=== PATIENT | female | born 1990 | race Hispanic/Latino ===

== ENCOUNTER 2017-08-17 18:35 | Emergency (ER) | payer OTHER ==
[~2017-08-17 18:35] MED LIST: ACET1TAB12 PO
[2017-08-17] MEDS ORDERED: ONDANSETRON HCL 4 MG/2 ML VIAL ONE (19:34)
[2017-08-17] MEDS ORDERED: ACETAMINOPHEN EXTRA STRENGTH 500 MG TABLET ONE (19:34)
[2017-08-17 19:38] LABS: BASOPHILS % (AUTO) 0.7 % (0.0-5.0); BILIRUBIN,URINE Negative (NEGATIVE); COLOR,URINE Yellow (YELLOW); EOSINOPHILS % (AUTO) 1.1 % (0.0-8.0); GLUCOSE, URINE (UA) Negative (NEGATIVE); HEMATOCRIT 38.1 % (36-48); KETONES,URINE Negative (NEGATIVE); LEUKOCYTE ESTERASE ,URINE Negative (NEGATIVE); LYMPHOCYTES % (AUTO) 29.2 % (21.0-51.0); MEAN CORPUSCULAR HEMOGLOBIN 31.4 pg (27.0-33.0); MEAN CORPUSCULAR HGB CONC 34.9 g/dL (32.0-36.0); MONOCYTES % (AUTO) 4.1 % (3.0-13.0); NEUTROPHILS % (AUTO) 64.9 % (40.0-77.0); NITRATE,URINE Negative (NEGATIVE); OCCULT BLOOD,URINE Trace (NEGATIVE); PH,URINE 6.5 (5.0-8.0); PLATELET COUNT (AUTO) 266 K/uL (130-400); PROTEIN,URINE Negative (NEGATIVE); RED BLOOD CELL COUNT(AUTO) 4.23 MIL/uL (4.00-5.50); RED CELL DISTRIBUTION WIDTH 12.6 % (11.0-15.5); WHITE BLOOD COUNT (AUTO) 7.6 K/uL (4.8-10.8)
[2017-08-17 19:39] LABS: APPEARANCE,URINE SLIGHTLY CLOUDY (CLEAR)
[2017-08-17 19:48] LABS: CREATININE 0.7 mg/dL (0.5-1.5); POTASSIUM 3.7 mmol/L (3.5-5.1)
[2017-08-17 19:49] LABS: BACTERIA,URINE Few /HPF (None Seen); SQUAMOUS EPITHELIAL CELL,UR Few /HPF (0-2); WBC,URINE 0-1 /HPF (0-1)
[2017-08-17 19:50] LABS: MUCUS,URINE Few LPF (None Seen)
[2017-08-17 19:53] LABS: ALBUMIN 4.1 g/dL (3.5-5.0); BILIRUBIN,TOTAL 0.3 mg/dL (0.2-1.0); TOTAL PROTEIN, SERUM 7.5 g/dL (6.0-8.3)
[2017-08-17] MEDS ORDERED: KETOROLAC TROMETHAMINE 15MG/ML ONE (20:04)
== END 2017-08-17 20:23 | disposition home or self-care (01) ==
LOC: EDH 18:35
DX: R10.32 Left lower quadrant pain (principal); G43.909 Migraine, unspecified, not intractable, without status migrainosus; Z88.0 Allergy status to penicillin; Z72.0 Tobacco use
CPT/HCPCS: 36415; 80053; 81001; 83690; 84703; 85025; 96374; 96375; 99284; J1885; J2405

== ENCOUNTER 2018-08-07 09:08 | Emergency (ER) | payer OTHER ==
[2018-08-07 10:22] LABS: HCG,QUAL RESULT NEGATIVE (NEGATIVE)
[2018-08-07] MEDS ORDERED: DiphenhydrAMINE HCL 50 MG/ML VIAL ONE (10:27)
[2018-08-07 10:28] LABS: AMPHET/METH SCREEN,URINE NEGATIVE (NEGATIVE); BARBITURATE SCREEN, URINE NEGATIVE (NEGATIVE); BENZODIAZEPINES SCREEN,URINE NEGATIVE (NEGATIVE); CANNABINOID SCREEN,URINE NEGATIVE (NEGATIVE); COCAINE SCREEN,URINE POSITIVE (NEGATIVE); OPIATE SCREEN,URINE NEGATIVE (NEGATIVE); PHENCYCLIDINE SCREEN,URINE NEGATIVE (NEGATIVE)
[2018-08-07] MEDS ORDERED: KETOROLAC TROMETHAMINE 60 MG/2 ML VIAL ONE (10:28)
[2018-08-07] MEDS ORDERED: ONDANSETRON ODT 4 MG TAB ONE (10:28)
== END 2018-08-07 10:52 | disposition home or self-care (01) ==
LOC: EDH 09:08
DX: G43.909 Migraine, unspecified, not intractable, without status migrainosus (principal); R11.0 Nausea; Z88.0 Allergy status to penicillin; Z98.890 Other specified postprocedural states
CPT/HCPCS: 80305; 81025; 96372 ×2; 99284; J1200; J1885

== ENCOUNTER 2022-03-20 13:04 | Emergency (ER) | payer OTHER ==
[~2022-03-20] VITALS: Ht 154.9 cm; Wt 62.1 kg
[~2022-03-20 13:04] MED LIST changes: +ACET-2079 PO; +IBUP-2070 PO
[2022-03-20 13:32] LABS: BASOPHILS % (AUTO) 0.6 % (0.0-5.0); EOSINOPHILS % (AUTO) 1.6 % (0.0-8.0); HEMATOCRIT 38.8 % (36-48); LYMPHOCYTES % (AUTO) 26.9 % (21.0-51.0); MEAN CORPUSCULAR HEMOGLOBIN 29.5 pg (27.0-33.0); MEAN CORPUSCULAR VOLUME 86.6 fL (79-99); MONOCYTES % (AUTO) 6.2 % (3.0-13.0); NEUTROPHILS % (AUTO) 64.6 % (40.0-77.0); PLATELET COUNT (AUTO) 305 K/uL (130-400); RED BLOOD CELL COUNT(AUTO) 4.48 MIL/uL (4.00-5.50); RED CELL DISTRIBUTION WIDTH 12.2 % (11.0-15.5); WHITE BLOOD COUNT (AUTO) 6.8 K/uL (4.8-10.8)
[2022-03-20 13:37] LABS: CREATININE 0.6 mg/dL (0.5-1.5); POTASSIUM 3.6 mmol/L (3.5-5.1)
[2022-03-20 13:54] LABS: APPEARANCE,URINE TURBID (CLEAR); BILIRUBIN,URINE NEGATIVE (NEGATIVE); COLOR,URINE RED (YELLOW); GLUCOSE, URINE (UA) NEGATIVE (NEGATIVE); KETONES,URINE NEGATIVE (NEGATIVE); LEUKOCYTE ESTERASE ,URINE NEGATIVE Leu/uL (NEGATIVE); NITRATE,URINE NEGATIVE (NEGATIVE); OCCULT BLOOD,URINE LARGE (NEGATIVE); PH,URINE 6.5 (5.0-8.0); PROTEIN,URINE NEGATIVE (NEGATIVE); UROBILINOGEN,URINE 0.2 mg/dL (0.2-1.0)
[2022-03-20 13:55] LABS: ALBUMIN 3.7 g/dL (3.5-5.0); TOTAL PROTEIN, SERUM 7.6 g/dL (6.0-8.3)
[2022-03-20 14:13] LABS: RBC,URINE TNTC /HPF (0-1); SQUAMOUS EPITHELIAL CELL,UR 0-2 /HPF (0-2)
[2022-03-20 14:14] LABS: BACTERIA,URINE Rare /HPF (None Seen); WBC,URINE None Seen /HPF (0-1)
[2022-03-20 15:09] VITALS: BP 126/72
== END 2022-03-20 15:05 | disposition home or self-care (01) ==
LOC: EDH 13:04
DX: N94.6 Dysmenorrhea, unspecified (principal); Z88.0 Allergy status to penicillin; Z79.899 Other long term (current) drug therapy; Z98.890 Other specified postprocedural states
CPT/HCPCS: 36415; 80053; 81001; 84702; 85025

== ENCOUNTER 2022-03-27 08:22 | Emergency (ER) | payer OTHER ==
[~2022-03-27] VITALS: Ht 152.4 cm; Wt 61.7 kg
[2022-03-27] MEDS ORDERED: ONDANSETRON ODT 4MG TAB ONE (08:31)
[2022-03-27 08:57] LABS: BASOPHILS % (AUTO) 0.5 % (0.0-5.0); EOSINOPHILS % (AUTO) 0.7 % (0.0-8.0); HEMATOCRIT 36.8 % (36-48); LYMPHOCYTES % (AUTO) 23.4 % (21.0-51.0); MEAN CORPUSCULAR HEMOGLOBIN 29.4 pg (27.0-33.0); MEAN CORPUSCULAR VOLUME 86.6 fL (79-99); PLATELET COUNT (AUTO) 305 K/uL (130-400); RED BLOOD CELL COUNT(AUTO) 4.25 MIL/uL (4.00-5.50); RED CELL DISTRIBUTION WIDTH 12.2 % (11.0-15.5); WHITE BLOOD COUNT (AUTO) 8.2 K/uL (4.8-10.8)
[2022-03-27] MEDS ORDERED: 0.9%NACL 1000ML 1,000 ML IV ONE (09:00)
[2022-03-27] MEDS ORDERED: PANTOPRAZOLE 40 MG/VIAL IVP ONE (09:00)
[2022-03-27 09:06] LABS: APPEARANCE,URINE CLEAR (CLEAR); BILIRUBIN,URINE NEGATIVE (NEGATIVE); COLOR,URINE LIGHT-YELLOW (YELLOW); GLUCOSE, URINE (UA) NEGATIVE (NEGATIVE); KETONES,URINE NEGATIVE (NEGATIVE); LEUKOCYTE ESTERASE ,URINE NEGATIVE Leu/uL (NEGATIVE); NITRATE,URINE NEGATIVE (NEGATIVE); OCCULT BLOOD,URINE NEGATIVE (NEGATIVE); PROTEIN,URINE 10 mg/dL (NEGATIVE); UROBILINOGEN,URINE 0.2 mg/dL (0.2-1.0)
[2022-03-27 09:11] LABS: HCG,QUALITATIVE URINE NEGATIVE (NEGATIVE)
[2022-03-27 09:19] LABS: AMPHET/METH SCREEN,URINE NEGATIVE (NEGATIVE); BARBITURATE SCREEN, URINE NEGATIVE (NEGATIVE); BENZODIAZEPINES SCREEN,URINE NEGATIVE (NEGATIVE); CANNABINOID SCREEN,URINE NEGATIVE (NEGATIVE); COCAINE SCREEN,URINE NEGATIVE (NEGATIVE); OPIATE SCREEN,URINE NEGATIVE (NEGATIVE); PHENCYCLIDINE SCREEN,URINE NEGATIVE (NEGATIVE)
[2022-03-27 09:20] LABS: ALBUMIN 3.7 g/dL (3.5-5.0); CREATININE 0.6 mg/dL (0.5-1.5); POTASSIUM 3.7 mmol/L (3.5-5.1); TOTAL PROTEIN, SERUM 7.5 g/dL (6.0-8.3)
[2022-03-27] MEDS ORDERED: KETOROLAC 30MG VIAL (30MG/ML) IVP ONE (09:30)
[2022-03-27 09:40] LABS: BACTERIA,URINE RARE /HPF (None Seen); MUCUS,URINE RARE LPF (None Seen); RBC,URINE 0-1 /HPF (0-1); SQUAMOUS EPITHELIAL CELL,UR MOD /HPF (0-2)
[2022-03-27] MEDS ORDERED: ONDANSETRON 4MG INJ ONE (11:38)
[2022-03-27] MEDS ORDERED: ONDANSETRON 4MG INJ IVP SCH (12:00)
[2022-03-27] MEDS ORDERED: NAPR375T6 PO (13:30)
[2022-03-27] MEDS ORDERED: ONDA4TAB10 PO (13:30)
[2022-03-27] MEDS ORDERED: FAMO-136 PO (13:30)
[2022-03-27 13:50] VITALS: BP 138/82
== END 2022-03-27 13:50 | disposition home or self-care (01) ==
LOC: EDH 08:22
DX: N20.0 Calculus of kidney (principal); R10.32 Left lower quadrant pain; Z88.0 Allergy status to penicillin; Z20.822 Contact with and (suspected) exposure to COVID-19; Z79.899 Other long term (current) drug therapy; Z98.890 Other specified postprocedural states
CPT/HCPCS: 99285; 74176; 96374; 76856; 96375; 87635; 80053; 80305; 83690; 85025; 81025; 36415; 81001; C9803; J7030; J2405; J1885; C9113

== ENCOUNTER 2023-11-15 16:11 | Emergency (ER) | payer BC, OTHER ==
[~2023-11-15] VITALS: Ht 154.9 cm; Wt 66.2 kg
[~2023-11-15 16:11] MED LIST changes: +FAMO-136 PO; +NAPR375T6 PO; +ONDA-243 PO
[2023-11-15 16:22] VITALS: BP 145/85; PULSE 95; RESP 19; TEMP 98.3; O2SAT 99
[2023-11-15] MEDS: NEOMY SULF/BACITRA/POLYMYXIN B 1 EACH PACKET TP ONE (16:32)
[2023-11-15] MEDS: cePHALexin 500 MG CAPSULE PO ONE (16:32)
[2023-11-15] MEDS: teTANUS/diphthERIA TOXOID [ADULT] 0.5 ML VIAL IM ONE (16:34)
[2023-11-15] MEDS ORDERED: CEPH500B PO (16:57)
== END 2023-11-15 17:05 | disposition home or self-care (01) ==
LOC: EDH 16:11
DX: S60.411A Abrasion of left index finger, initial encounter (principal); Z79.899 Other long term (current) drug therapy; Z88.0 Allergy status to penicillin; Z98.890 Other specified postprocedural states; W26.0XXA Contact with knife, initial encounter; Y93.89 Activity, other specified; Y92.89 Other specified places as the place of occurrence of the external cause; Y99.8 Other external cause status
CPT/HCPCS: 90471; 90714

== ENCOUNTER → 2024-03-29 | Outpatient (CLI) | payer OTHER ==
[~2024-03-29] MED LIST changes: +CEPH500B PO; +NAPR-1505 PO; -NAPR375T6 PO
--- NOTE | 2024-03-29 10:59 | HMCIMG ---
US PELVIC NON-OB COMP HISTORY: No additional history given. COMPARISON: None TECHNIQUE: Transabdominal pelvic ultrasound study was performed. FINDINGS: The uterus measures 12 x 5.5 x 6.9 cm. The right ovary measures 2.9 x 1.5 x 1.8 cm. The left ovary is not seen. Endometrial thickness is 2.4 cm. No free fluid is seen in the cul-de-sac. IMPRESSION: 1. No adnexal mass is seen.
--- NOTE | 2024-03-29 12:11 | HMCIMG ---
US BREAST BILATERAL REASON: estrogen excess. COMPARISON: None TECHNIQUE: Bilateral breast ultrasound study was performed. FINDINGS: No evidence of cystic mass is seen. There is right axillary lymph node measuring 11 x 4 x 10 mm. IMPRESSION: Right axillary lymph node. CATEGORY 2: BENIGN FINDINGS Recommend monthly self breast exam as well as annual clinical examination.
== END | disposition home or self-care (01) ==
LOC: RAH 07:19
PROVIDERS: ATTEND Internal Medicine
DX: Q83.1 Accessory breast (principal); R93.89 Abnormal findings on diagnostic imaging of other specified body structures; N64.4 Mastodynia; E28.0 Estrogen excess; E22.9 Hyperfunction of pituitary gland, unspecified; R10.2 Pelvic and perineal pain
CPT/HCPCS: 76856

== ENCOUNTER 2024-08-26 12:56 | Emergency (ER) | payer OTHER, MEDICAID ==
[~2024-08-26] VITALS: Ht 154.9 cm; Wt 68.9 kg
[2024-08-26 13:23] LABS: SARS-CoV-2, RNA, NAAT NEGATIVE SARS CoV-2 (NEGATIVE)
[2024-08-26 13:24] LABS: IMMATURE GRANULOCYTE ABSOLUTE 0.02 K/uL (0-1); NUCLEATED RED BLOOD CELLS 0.0 % (0.0-0.19); PLATELET COUNT (AUTO) 330 K/uL (130-400); RED BLOOD CELL COUNT(AUTO) 4.27 MIL/uL (4.00-5.50); RED CELL DISTRIBUTION WIDTH 14.5 % (11.0-15.5); WHITE BLOOD COUNT (AUTO) 7.3 K/uL (4.8-10.8)
[2024-08-26 13:25] LABS: APPEARANCE,URINE CLOUDY (CLEAR); GLUCOSE, URINE (UA) NEGATIVE (NEGATIVE); LEUKOCYTE ESTERASE ,URINE NEGATIVE Leu/uL (NEGATIVE); NITRATE,URINE NEGATIVE (NEGATIVE); OCCULT BLOOD,URINE NEGATIVE (NEGATIVE)
[2024-08-26 13:27] LABS: RAPID GROUP A STREP negative (NEGATIVE)
[2024-08-26 13:30] LABS: CREATININE 0.4 mg/dL (0.5-1.0); GLOMERULAR FILTR. RATE CALC 132.0 mL/min (>90); GLUCOSE,RANDOM 89.0 mg/dL (70-105); SODIUM SERUM 138.0 mmol/L (136-145); UREA NITROGEN, BLOOD 8.0 mg/dL (7-18)
[2024-08-26 13:32] LABS: INFLUENZA TYPE A Negative For Type A (NEGATIVE); INFLUENZA TYPE B Negative For Type B (NEGATIVE)
--- NOTE | 2024-08-26 13:59 | ERN ---
General Chief Complaint: Headache Stated Complaint: HEADACHE Time Seen by MD: 12:59 Source: patient History of Present Illness Initial Comments PATIENT IS A 34-YEAR-OLD FEMALE COMING IN TO BE EVALUATED FOR HEADACHE. PER PATIENT SHE HAS BEEN HAVING FRONTAL HEADACHE FOR A COUPLE OF DAYS. SHE DOES HAS A HISTORY OF MIGRAINES. Allergies: Coded Allergies: No Known Allergies (Verified Allergy, Unknown, 08/07/18) Penicillins (Unverified Allergy, Unknown, 08/07/18) Home Meds Active Scripts Cephalexin Monohydrate (Keflex) 500 Mg Cap, 500 MG PO QID for 7 Days, #28 CAP Prov:LE DUNCAN NP 11/15/23 Naproxen (Naproxen) 375 Mg Tablet.dr, 375 MG PO BID for 7 Days, #14 TAB Prov:DANAE GALVEZ MD 03/27/22 Ondansetron (Ondansetron Odt) 4 Mg Tab.rapdis, 4 MG PO BID PRN for nausea vomi ting for 5 Days, #10 TAB Prov:DANAE GALVEZ MD 03/27/22 Famotidine (Pepcid) 20 Mg Tablet, 20 MG PO BID for 30 Days, #60 TAB Prov:DANAE GALVEZ MD 03/27/22 Acetaminophen with Codeine (Acetaminophen-Cod #3 Tablet) 1 Each Tablet, 1 TAB PO Q6H PRN for PAIN LEVEL 7 TO 10, #15 TAB Prov:DEANDRE GEORGES MD 08/18/21 Ibuprofen (Ibuprofen) 600 Mg Tablet, 600 MG PO Q6H PRN for PAIN, #30 TAB Prov:DEANDRE GEORGES MD 08/18/21 Reported Medications Acetaminophen with Codeine (Tylenol with Codeine #3 Tablet) 1 Each Tablet, 1 TAB PO Q4HPRN for PAIN LEVEL 1 TO 5, TAB 07/12/17 Past Medical History Past Medical History: No Pertinent History Medical History Other: OVARIAN CYST Past Surgical History: None Surgical History Other: LAPROSCOPIC, HERNIA Social History Social History: Negative Female( History) History: Not Applicable : 5 Para: 3 Aborts: 1 ROS Dictation CONSTITUTIONAL: NO CHILLS, NO FEVER, NO WEAKNESS, NO DIAPHORESIS, NO MALAISE. HEAD/FACE: NO SIGNS OF TRAUMA. EENT: NO EYE PAIN, NO BLURRED VISION, NO TEARING, NO DOUBLE VISION, NO EAR PAIN, NO EAR DISCHARGE, NO NOSE PAIN, NO NASAL CONGESTION, NO THROAT PAIN, NO THROAT SWELLING, NO MOUTH PAIN. RESPIRATORY: NO COUGH, NO ORTHOPNEA, NO SOB, NO STRIDOR, NO WHEEZING. CARDIOVASCULAR: NO CHEST PAIN, NO EDEMA, NO PALPITATIONS, NO SYNCOPE. GASTROINTESTINAL/ABDOMINAL: NO ABDOMINAL PAIN, NO CONSTIPATION, NO DIARRHEA, NO NAUSEA, NO VOMITING. GENITOURINARY: NO ABNORMAL DISCHARGE, NO DYSURIA, NO FREQUENT URINATION, NO HEMATURIA. NO COMPLAINTS OF PAIN IN THE GENITALS. MUSCULOSKELETAL: NO BACK PAIN, NO GOUT, NO JOINT PAIN, NO JOINT SWELLING, NO MUSCLE PAIN, NO MUSCLE STIFFNESS, NO NECK PAIN. INTEGUMENTARY: NO CHANGE IN COLOR, NO CHANGE IN HAIR/NAILS, NO DRYNESS, NO LESION, NO LUMPS, NO RASH. NEUROLOGICAL/PSYCH: NO ANXIETY, NOT DEPRESSED, NO EMOTIONAL PROBLEM, NO HEADACHE, NO NUMBNESS, NO PRE-EXISTING DEFICIT, NO HISTORY OF SEIZURES, NO TREMORS, NO WEAKNESS. HEMATOLOGIC/LYMPHATIC: NOT ANEMIC, NO HISTORY OF BLOOD CLOTS, NO APPARENT BLEEDING, NO BRUISING, GLANDS NOT SWOLLEN. ALL SYSTEMS NEGATIVE, EXCEPT NOTED. Physical Exam Physical Exam Dictation VITAL SIGNS: REVIEWED. GENERAL APPEARANCE: ALERT, ORIENTED X3, NO ACUTE DISTRESS, OBESE. HEAD AND FACE: NON-TRAUMATIC. FRONTAL SINUS TENDERNESS, MAXILLARY SINUS TENDERNESS EYES: PERRL, PINK CONJUNCTIVAS, EYELID NO TRAUMA, ANTERIOR CHAMBER CLEAR. EARS: PINNAS INTACT AND NO SIGNS OF TRAUMA OR ERYTHEMA. EAR CANALS CLEAR AND NO DISCHARGE. TMS ERYTHEMA. NOSE: NO DISCHARGE, NO BLEEDING. NASAL TURBINATE SWELLING BILATERAL OROPHARYNX: MOUTH NORMAL, TEETH NO CARIES, TONGUE PINK. PHARYNX CLEAR, NO ERYTHEMA. TONSILS NO EXUDATES, NO ABSCESSES NOTED. MUCOUS MEMBRANE MOIST. NECK: SUPPLE, NON-TENDER, NO THYROMEGALY, NO MASSES, NO JVD, NO BRUITS. BREAST: DEFERRED. CHEST: NO TENDERNESS, NO CREPITUS, NO PARADOXICAL MOVEMENT, NO RETRACTIONS. LUNGS: CLEAR, WELL-VENTILATED, SYMMETRIC, NO RALES, NO WHEEZING, NO RHONCHI, NO STRIDOR, GOOD BREATH SOUNDS BILATERALLY. HEART: REGULAR RATE, REGULAR RHYTHM, NO MURMUR, NO GALLOPS. VASCULAR: NO PERIPHERAL EDEMA. ABDOMEN: SOFT, POSITIVE BOWEL SOUNDS, NONDISTENDED, NO GUARDING, NONTENDER, NO REBOUND, NO MASSES NO HEPATOMEGALY, NO SPLENOMEGALY, NO VAUGHN'S SIGN, NO HERNIAS. RECTAL: DEFERRED. GENITAL: DEFERRED. NEUROLOGICAL: NORMAL SPEECH, GROSS MOTOR FUNCTION INTACT, GROSS SENSORY FUNCTION INTACT. MUSCULOSKELETAL: NECK NONTENDER, FULL RANGE OF MOTION, BACK NONTENDER, FULL RANGE OF MOTION. EXTREMITIES: NONTENDER, FULL RANGE OF MOTION. SKIN: COLOR PINK, DRY, NO TURGOR, NO RASH, NO LACERATIONS, NO ABRASIONS, NO CONTUSIONS. LYMPHATICS: DEFERRED. Results Laboratory and Microbiology Lab and Micro Result Laboratory Tests Test 08/26/24 13:03 08/26/24 13:06 08/26/24 13:14 Influenza Type A Antigen Negative For Type A Influenza Type B Antigen Negative For Type B SARS-CoV-2, RNA, NAAT NEGATIVE SARS CoV-2 Group A Streptococcus Rapid negative (NEGATIVE) Urine Color LIGHT-YELLOW (YELLOW) Urine Appearance CLOUDY (CLEAR) H Urine pH 7.5 (5.0-8.0) Urine Specific [place] 1.013 (1.001-1.031) Urine Protein NEGATIVE mg/dL (NEGATIVE) Urine Glucose (UA) NEGATIVE mg/dL (NEGATIVE) Urine Ketones NEGATIVE mg/dL (NEGATIVE) Urine Occult Blood NEGATIVE (NEGATIVE) Urine Nitrate NEGATIVE (NEGATIVE) Urine Bilirubin NEGATIVE mg/dL (NEGATIVE) Urine Urobilinogen 0.2 mg/dL (0.2-1.0) Urine Leukocyte Esterase NEGATIVE Amanda/uL Urine RBC None /HPF (0-1) Urine WBC 0-1 /HPF (0-1) Urine Squamous Epithelial Cells MOD /HPF (0-2) Urine Amorphous Crystals (Auto) RARE /LPF (None Seen) Urine Bacteria RARE /HPF (None Seen) White Blood Count 7.3 K/uL (4.8-10.8) Red Blood Count 4.27 MIL/uL (4.00-5.50) Hemoglobin 11.4 g/dL (12.0-16.0) L Hematocrit 35.0 % (36-48) L Mean Corpuscular Volume 82.0 fL (79-99) Mean Corpuscular Hemoglobin 26.7 pg (27.0-33.0) L Mean Corpuscular Hemoglobin Concent 32.6 g/dL (32.0-36.0) Red Cell Distribution Width 14.5 % (11.0-15.5) Platelet Count 330 K/uL (130-400) Mean Platelet Volume 9.8 fL (7.5-10.5) Immature Granulocyte % (Auto) 0.3 % (0-1) Neutrophils (%) (Auto) 60.6 % (40.0-77.0) Lymphocytes (%) (Auto) 28.9 % (21.0-51.0) Monocytes (%) (Auto) 7.5 % (3.0-13.0) Eosinophils (%) (Auto) 1.9 % (0.0-8.0) Basophils (%) (Auto) 0.8 % (0.0-5.0) Neutrophils # (Auto) 4.4 K/uL (1.8-7.7) Lymphocytes # (Auto) 2.1 K/uL (1.0-4.8) Monocytes # (Auto) 0.6 K/uL (0.1-1.0) Eosinophils # (Auto) 0.14 K/uL (0.00-0.70) Basophils # (Auto) 0.06 K/uL (0.00-0.20) Absolute Immature Granulocyte (auto 0.02 K/uL (0-1) Nucleated Red Blood Cells 0.0 % (0.0-0.19) Sodium Level 138 mmol/L (136-145) Potassium Level 3.6 mmol/L (3.5-5.1) Chloride Level 104 mmol/L (101-111) Carbon Dioxide Level 25 mmol/L (21-32) Blood Urea Nitrogen 8 mg/dL (7-18) Creatinine 0.4 mg/dL (0.5-1.0) L Glomerular Filtration Rate Calc 132 mL/min (>90) Random Glucose 89 mg/dL (70-105) Total Calcium 9.4 mg/dL (8.5-10.1) Human Chorionic Gonadotropin, Quant 20906 mIU/mL (0-5) H Labs Reviewed?: Yes EKG/XRAY/US/CT/MRI Ultrasound Comment ULTRASOUND HE OB- WITHIN NORMAL LIMITS MDM MDM: DIFFERENTIAL DIAGNOSIS: SINUSITIS, UTI, TENSION HEADACHE, DEHYDRATION, RATIONALE: TESTS CONSIDERED AND ORDERED SECONDARY TO SHARED DECISION MAKING INCLUDE: PREVIOUS OUTSIDE RECORDS REVIEWED: OLD ER VISITS. RISK OF COMPLICATION AND/OR MORBIDITY OR MORTALITY OF PATIENT MANAGEMENT: NONE MEDICATIONS-PER MEDICATION RECONCILIATION PATIENT IS A 34-YEAR-OLD FEMALE COMING IN COMPLAINING OF FRONTAL HEADACHE. PATIENT IS ULTRASOUND DID NOT DISCLOSE ACUTE FINDINGS LABORATORY WORKUP WITHIN NORMAL LIMITS. ON PHYSICAL EXAM THAT HAS TENDERNESS IN THE FRONTAL AND MAXILLARY SINUSES WELL NASAL TURBINATE SWELLING BILATERAL. PATIENT WILL BE DISCHARGED IN STABLE CONDITION WITH A DIAGNOSIS OF TENSION HEADACHE WITH SINUSITIS. ED Course Orders Procedure Category Date Status Time Cbc With Differential LAB 08/26/24 Complete 13:01 Basic Metabolic Panel LAB 08/26/24 Complete 13:01 0.9%Nacl 1000ml (Ns PHA 08/26/24 Complete 1000ml) 13:30 Urinalysis LAB 08/26/24 Complete W/Microscopic 13:01 Covid Rna Naat LAB 08/26/24 Complete 13:01 Rapid (Group A Strep) LAB 08/26/24 Complete 13:01 Influenza Type A & B, LAB 08/26/24 Complete Rapid 13:01 Hcg,Quantitative LAB 08/26/24 Complete 14:07 Us Ob <14 Weeks US 08/26/24 Resulted 14:07 Current Medications Medications (Trade) Dose Ordered Sig/Helene Route PRN Reason Start Time Stop Time Status Last Admin Dose Admin Sodium Chloride 1,000 ml @ 0 mls/hr ONCE ONCE IV 08/26/24 13:30 08/26/24 13:31 DC 08/26/24 14:33 Vital Signs Date Time Temp Pulse Resp B/P (MAP) Pulse Ox O2 Delivery O2 Flow Rate FiO2 08/26/24 13:26 98.2 90 16 125/75 98 Room Air* 0 21 08/26/24 12:58 98.8 93 16 127/79 35 Room Air 0 DX & DISP Disposition: Discharge Departure Impression: Primary Impression: Sinusitis Additional Impressions: Tension headache, 5, currently Condition: Stable Scripts Sodium Chloride ([place] Saline) 0.65 % [place] 1 SPRAY NS TID, #50 ML 0 Refills Prov: DANAE GALVEZ MD 08/26/24 Additional Instructions: FOLLOW-UP WITH PRIMARY CARE PROVIDER IN 1 TO 2 DAYS. TAKE MEDICATIONS DIRECTED HERE IN THE EMERGENCY ROOM. OKAY TO CONTINUE HOME MEDICATIONS UNLESS OTHERWISE DISCUSSED DURING YOUR VISIT IN THE EMERGENCY ROOM TODAY. RETURN TO YOUR NEAREST EMERGENCY ROOM IF SYMPTOMS WORSEN OR IF THERE IS NO IMPROVEMENT. CALL 911 IF YOU NEED IMMEDIATE ASSISTANCE. TAKE TYLENOL [id number] NEEDED AND IF NO CONTRAINDICATIONS ARE PRESENT. INCREASE ORAL HYDRATION. A WOUND CULTURE OR URINE CULTURE WAS ORDERED HERE IN THE EMERGENCY ROOM DEPARTMENT PLEASE FOLLOW-UP WITH PRIMARY CARE PROVIDER AND ADVISE THEM TO GET REPORTS FROM OUR FACILITY. IF YOU HAD ANY RAFAELA WRAP/SPLINTS THAT WERE APPLIED HERE, PLEASE DO NOT REMOVE THEM UNTIL YOU SEE YOUR PRIMARY CARE OR SPECIALTY. REFERRALS: Referrals: CINTIA CORNELL MD (PCP) Time of Disposition: 15:38 DANAE GALVEZ MD Aug 26, 2024 13:59
[2024-08-26 14:16] LABS: SQUAMOUS EPITHELIAL CELL,UR MOD /HPF (0-2)
[2024-08-26] MEDS: 0.9%NACL 1000ML 1,000 ML IV ONE (14:33)
--- NOTE | 2024-08-26 15:11 | HMCIMG ---
EXAM: US Obstetrical, Complete <14 weeks CLINICAL HISTORY: VAG BLEED TECHNIQUE: Transabdominal imaging of the maternal pelvis and a <14 week gestation with image documentation. COMPARISON: Study dated 04/11. FINDINGS: GESTATION: 9 weeks 2 days. Gestational sac measures 4.46 cm, corresponding to 9 weeks 3 days. CRL measures 2.8 cm, corresponding to 9 weeks 5 days. heart rate measures 156 bpm. UTERUS: Unremarkable. No myometrial mass. CERVIX: Closed. Unremarkable. OVARIES: The right ovary measures 2.0 x 1.0 x 1.9 cm. The left ovary measures 2.9 x 2.6 x 2.6 cm. Simple cyst measuring 1.8 x 1.8 x 1.9 cm in the left ovary. FREE FLUID: No free fluid. IMPRESSION: 1. Single live intrauterine at 9 weeks 2 days with normal cardiac activity. /[place]
[2024-08-26] MEDS ORDERED: SODI50SP NS (15:40)
[2024-08-26 15:48] VITALS: BP 124/82; PULSE 84; RESP 16; TEMP 98.3; O2SAT 98
== END 2024-08-26 15:55 | disposition home or self-care (01) ==
LOC: EDH 12:56
DX: O99.511 Diseases of the respiratory system complicating pregnancy, first trimester (principal); J32.9 Chronic sinusitis, unspecified; O99.351 Diseases of the nervous system complicating pregnancy, first trimester; G44.209 Tension-type headache, unspecified, not intractable; O26.891 Other specified pregnancy related conditions, first trimester; R10.2 Pelvic and perineal pain; Z3A.09 9 weeks gestation of pregnancy; Z88.0 Allergy status to penicillin; Z79.899 Other long term (current) drug therapy; Z20.822 Contact with and (suspected) exposure to COVID-19
CPT/HCPCS: 36415; 76801; 80048; 81001; 84702; 85025; 87635; 87804; 87880; 99284

== ENCOUNTER 2024-09-09 18:50 | Emergency (ER) | payer OTHER, MEDICAID ==
[~2024-09-09] VITALS: Ht 154.9 cm; Wt 68.9 kg
[~2024-09-09 18:50] MED LIST changes: +SODI50SP NS
[2024-09-09] MEDS: 0.9%NACL 1000ML 1,000 ML IV SCH (19:46)
[2024-09-09 19:54] LABS: IMMATURE GRANULOCYTE ABSOLUTE 0.03 K/uL (0-1); NUCLEATED RED BLOOD CELLS 0.0 % (0.0-0.19); PLATELET COUNT (AUTO) 306 K/uL (130-400); RED BLOOD CELL COUNT(AUTO) 4.03 MIL/uL (4.00-5.50); RED CELL DISTRIBUTION WIDTH 14.3 % (11.0-15.5); WHITE BLOOD COUNT (AUTO) 7.3 K/uL (4.8-10.8)
[2024-09-09 20:00] LABS: CREATININE 0.5 mg/dL (0.5-1.0); GLOMERULAR FILTR. RATE CALC 125.0 mL/min (>90); GLUCOSE,RANDOM 88.0 mg/dL (70-105); SODIUM SERUM 137.0 mmol/L (136-145); UREA NITROGEN, BLOOD 9.0 mg/dL (7-18)
--- NOTE | 2024-09-09 20:12 | ERN ---
ED Note History of Present Illness Stated Complaint: MIGRAINE, ABD PAIN, 11 WEEKS Chief Complaint: Abdominal Pain in Time Seen by MD: 18:53 Time Seen by Midlevel: 18:53 Dictation: The patient is a 34-year-old female with a history of migraines who is11 weeks who presents to the emergency department with complaints of right-sided headache for two days. Patient reports some nausea but no vomiting. Reports suprapubic abdominal pain and bloody spotting. Patient denies any fevers or head injury. Reports she gets migraines head aches frequently Allergies: Coded Allergies: No Known Allergies (Verified Allergy, Unknown, 08/07/18) Penicillins (Unverified Allergy, Unknown, 08/07/18) Home Meds Active Scripts Sodium Chloride ([place] Saline) 0.65 % [place], 1 SPRAY NS TID, #50 ML 0 Refills Prov:DANAE GALVEZ MD 08/26/24 Cephalexin Monohydrate (Keflex) 500 Mg Cap, 500 MG PO QID for 7 Days, #28 CAP Prov:LE DUNCAN NP 11/15/23 Naproxen (Naproxen) 375 Mg Tablet.dr, 375 MG PO BID for 7 Days, #14 TAB Prov:DANAE GALVEZ MD 03/27/22 Ondansetron (Ondansetron Odt) 4 Mg Tab.rapdis, 4 MG PO BID PRN for nausea vomiting for 5 Days, #10 TAB Prov:DANAE GALVEZ MD 03/27/22 Famotidine (Pepcid) 20 Mg Tablet, 20 MG PO BID for 30 Days, #60 TAB Prov:DANAE GALVEZ MD 03/27/22 Acetaminophen with Codeine (Acetaminophen-Cod #3 Tablet) 1 Each Tablet, 1 TAB PO Q6H PRN for PAIN LEVEL 7 TO 10, #15 TAB Prov:DEANDRE GEORGES MD 08/18/21 Ibuprofen (Ibuprofen) 600 Mg Tablet, 600 MG PO Q6H PRN for PAIN, #30 TAB Prov:DEANDRE GEORGES MD 08/18/21 Reported Medications Acetaminophen with Codeine (Tylenol with Codeine #3 Tablet) 1 Each Tablet, 1 TAB PO Q4HPRN for PAIN LEVEL 1 TO 5, TAB 07/12/17 Past Medical History Past Medical History: Other Additional Past Medical Hx: OVARIAN CYST Surgical History: None Surgical History Other: LAPROSCOPIC, HERNIA Social History: Negative History: Not Applicable LMP: June 22, 2024 : 5 Para: 3 Aborts: 1 RN Note Reviewed/Agreed w/PFSH: Yes Review of System Dictation Constitutional: Negative for fever,chills, and weight loss Eyes: Negative for injury, pain,redness, and discharge ENT: Negative for injury,pain or swelling Cardiovascular: Negative for chest pain, palpitations, and edema Respiratory: Negative for shortness of breath, cough, and wheezing, Abdomen/GI: Negative for ,vomiting, diarrhea, and constipation positive for nausea, abdominal pain Back: Negative for injury and pain : Negative for injury, and discharge positive for vaginal bleeding MS/Extremity: Negative for injury and deformity Skin: Negative for rash, and discoloration Neuro: Negative for weakness, numbness, tingling, and seizure positive for headache Psych: Negative for suicide ideation, homicidal ideation, and hallucinations Initial Vital Sign VS Vital Signs Date Time Temp Pulse Resp B/P (MAP) Pulse Ox O2 Delivery O2 Flow Rate FiO2 09/09/24 18:52 98.1 102 16 119/72 98 Room Air 0 09/09/24 19:15 21 Physical Exam Dictation Vital Signs reviewed General Appearance: Alert, oriented x 3, no acute distress, well developed, nourished. Head and Face: non-traumatic. Eyes: PERRL, pink conjunctivas, eyelid no trauma, anterior chamber with arcus senilis. Ears: Pinnas intact and no signs of trauma or erythema ear canals clear and no discharge TM no erythema Nose: No discharge, no bleeding. Oropharynx: Mouth normal, tongue pink. pharynx clear,no erythema, tonsils no exudates, no abscesses noted, mucous membrane moist Neck: Supple, non-tender, no thyromegaly, no masses, no JVD, no bruits Breast:Deferred Chest:No tenderness, no crepitus, no paradoxical movement, no retractions Lungs:Clear, well-ventilated, symmetric, no rales, no wheezing, no rhonchi, no stridor, good breath sounds bilaterally Heart: Regular rate, regular rhythm, no murmur, no gallops Vascular: no peripheral edema, Abdomen: Soft, positive bowel sounds, nondistended, no guarding, nontender, no rebound, no masses no hepatomegaly, no splenomegaly, no Ly's sign, no hernias. Rectal: Deferred Genital: Deferred Neurological: Normal speech, motor function intact, sensory function intact , upper extremities equal in strength, lower extremities equal in strength Musculoskeletal: Neck nontender, full range of motion, back nontender, full range of motion, Extremities: nontender, full range of motion Skin: Color pink, dry, no turgor, no rash, no lacerations, no abrasions, no contusions. Lymphatic: Deferred Results (Laboratory/Radiology) Laboratory/Radiology Laboratory Tests Test 09/09/24 19:38 09/09/24 20:43 White Blood Count 7.3 K/uL (4.8-10.8) Red Blood Count 4.03 MIL/uL (4.00-5.50) Hemoglobin 10.7 g/dL (12.0-16.0) L Hematocrit 33.5 % (36-48) L Mean Corpuscular Volume 83.1 fL (79-99) Mean Corpuscular Hemoglobin 26.6 pg (27.0-33.0) L Mean Corpuscular Hemoglobin Concent 31.9 g/dL (32.0-36.0) L Red Cell Distribution Width 14.3 % (11.0-15.5) Platelet Count 306 K/uL (130-400) Mean Platelet Volume 9.6 fL (7.5-10.5) Immature Granulocyte % (Auto) 0.4 % (0-1) Neutrophils (%) (Auto) 64.6 % (40.0-77.0) Lymphocytes (%) (Auto) 23.9 % (21.0-51.0) Monocytes (%) (Auto) 8.4 % (3.0-13.0) Eosinophils (%) (Auto) 2.2 % (0.0-8.0) Basophils (%) (Auto) 0.5 % (0.0-5.0) Neutrophils # (Auto) 4.7 K/uL (1.8-7.7) Lymphocytes # (Auto) 1.7 K/uL (1.0-4.8) Monocytes # (Auto) 0.6 K/uL (0.1-1.0) Eosinophils # (Auto) 0.16 K/uL (0.00-0.70) Basophils # (Auto) 0.04 K/uL (0.00-0.20) Absolute Immature Granulocyte (auto 0.03 K/uL (0-1) Nucleated Red Blood Cells 0.0 % (0.0-0.19) Sodium Level 137 mmol/L (136-145) Potassium Level 3.5 mmol/L (3.5-5.1) Chloride Level 104 mmol/L (101-111) Carbon Dioxide Level 27 mmol/L (21-32) Blood Urea Nitrogen 9 mg/dL (7-18) Creatinine 0.5 mg/dL (0.5-1.0) Glomerular Filtration Rate Calc 125 mL/min (>90) Random Glucose 88 mg/dL (70-105) Total Calcium 8.5 mg/dL (8.5-10.1) Human Chorionic Gonadotropin, Quant 39288 mIU/mL (0-5) H Urine Color COLORLESS (YELLOW) Urine Appearance CLEAR (CLEAR) Urine pH 6.5 (5.0-8.0) Urine Specific [place] 1.010 (1.001-1.031) Urine Protein NEGATIVE mg/dL (NEGATIVE) Urine Glucose (UA) NEGATIVE mg/dL (NEGATIVE) Urine Ketones NEGATIVE mg/dL (NEGATIVE) Urine Occult Blood NEGATIVE (NEGATIVE) Urine Nitrate NEGATIVE (NEGATIVE) Urine Bilirubin NEGATIVE mg/dL (NEGATIVE) Urine Urobilinogen 0.2 mg/dL (0.2-1.0) Urine Leukocyte Esterase NEGATIVE Amanda/uL Urine RBC 0-1 /HPF (0-1) Urine WBC 0-1 /HPF (0-1) Urine Squamous Epithelial Cells RARE /HPF (0-2) Urine Bacteria RARE /HPF (None Seen) REASON: abd pain, vaginal sptting ORDERING PHYSICIAN: CHRISTIAN MAYS CONSULTING APPLICATION ENGINEER PROCEDURE: OB <14 - US OB <14 WEEKS CLINICAL INFORMATION Abdominal pain, vaginal bleeding COMPARISON None. TECHNIQUE Transabdominal sonography of the pelvis. FINDINGS Uterus: Enlarged by single live intrauterine gestation with crown-rump length measuring 5.19 cm, 11 weeks 6 days. heart rate 155 BPM. No significant subchorionic hemorrhage. Adnexa: Ovaries normal in size and morphology. Arterial and venous flow waveforms documented bilaterally. Free Fluid: No abnormal fluid. MEASUREMENTS Uterus (LxHxW cm): 13.2 x 8.3 x 9.7 cm Right Ovary (LxHxW cm): 3.3 x 2.4 x 2.9 cm Left Ovary (LxHxW cm): 2.5 x 2.5 x 2.3 cm IMPRESSION Single live intrauterine gestation with crown-rump length measuring 5.19 cm, 11 weeks 6 days. heart rate 155 BPM. /[place] Labs Reviewed?: Yes ED Course ED Course Orders Procedure Category Date Status Time Cbc With Differential LAB 09/09/24 Complete 19:05 Urinalysis Profile LAB 09/09/24 Complete 19:05 0.9%Nacl 1000ml (Ns PHA 09/09/24 In Process 1000ml) 19:30 Acetaminophen 325 Tab PHA 09/09/24 In Process (Tylenol 325mg Tab 19:30 Basic Metabolic Panel LAB 09/09/24 Complete 19:05 Us Ob <14 Weeks US 09/09/24 Resulted 19:05 Hcg,Quantitative LAB 09/09/24 Complete 19:05 Current Medications Medications (Trade) Dose Ordered Sig/Helene Route PRN Reason Start Time Stop Time Status Last Admin Dose Admin Acetaminophen (TYLenol 325MG TAB) 650 mg ONCE PO 09/09/24 19:30 09/09/24 23:59 09/09/24 19:47 Sodium Chloride 1,000 ml @ 0 mls/hr ONCE IV 09/09/24 19:30 09/10/24 19:29 09/09/24 19:46 Vital Signs Date Time Temp Pulse Resp B/P (MAP) Pulse Ox O2 Delivery O2 Flow Rate FiO2 09/09/24 19:15 98.1 91 18 120/77 98 Room Air* 0 21 09/09/24 18:52 98.1 102 16 119/72 98 Room Air 0 Medical Decision Making MDM The patient is a 34-year-old female with a history of migraines who is11 weeks who presents to the emergency department with complaints of right-sided headache for two days. Patient reports some nausea but no vomiting. Reports suprapubic abdominal pain and bloody spotting. Patient denies any fevers or head injury. Reports she gets migraines head aches frequently CBC showed no leukocytosis, mild normocytic anemia, chemistry showed no electrolyte imbalance, normal renal function, urinalysis unremarkable. Ultrasound revealed a single live intrauterine with a heart rate of 155, patient reports feeling better after medication administration. Patient did not saturating any pads in only has vaginal spotting. Patient instructed to follow up with OBGYN and PCP. On physical exam patient is in no acute distress, stable vital signs, neurologically intact. Differential diagnosis: Migraines, electrolyte imbalance, dehydration, threatening , UTI Need for hospitalization: Patient does not meet criteria for hospitalization. There are no social concerns with this patient. DX & DISP Disposition: Discharge Departure Impression: Primary Impression: Migraine headache Additional Impressions: 11 weeks gestation of , Threatened Condition: Stable Additional Instructions: Please follow up with the OBGYN in your primary doctor. Get plenty of rest. If symptoms worsen please return to ER. FOLLOW-UP WITH PRIMARY CARE PROVIDER IN 1 TO 2 DAYS. TAKE MEDICATIONS DIRECTED HERE IN THE EMERGENCY ROOM. OKAY TO CONTINUE HOME MEDICATIONS UNLESS OTHERWISE DISCUSSED DURING YOUR VISIT IN THE EMERGENCY ROOM TODAY. RETURN TO YOUR NEAREST EMERGENCY ROOM IF SYMPTOMS WORSEN OR IF THERE IS NO IMPROVEMENT. CALL 911 IF YOU NEED IMMEDIATE ASSISTANCE. TAKE TYLENOL [id number] NEEDED AND IF NO CONTRAINDICATIONS ARE PRESENT. INCREASE ORAL HYDRATION. A WOUND CULTURE OR URINE CULTURE WAS ORDERED HERE IN THE EMERGENCY ROOM DEPARTMENT PLEASE FOLLOW-UP WITH PRIMARY CARE PROVIDER AND ADVISE THEM TO GET REPEAT PORTS FROM OUR FACILITY. IF YOU HAD ANY RAFAELA WRAP/SPLINTS THAT WERE APPLIED HERE, PLEASE DO NOT REMOVE THEM UNTIL YOU SEE YOUR PRIMARY CARE OR SPECIALTY. Referrals: CINTIA CORNELL MD (PCP) Time of Disposition: 21:12 I have reviewed the case, and I agree with, Diagnosis and Plan CHRISTIAN MAYS Sep 09, 2024 20:12
[2024-09-09 20:27] LABS: HCG,QUANTITATIVE 62270.0 mIU/mL (0-5)
--- NOTE | 2024-09-09 20:40 | HMCIMG ---
CLINICAL INFORMATION Abdominal pain, vaginal bleeding COMPARISON None. TECHNIQUE Transabdominal sonography of the pelvis. FINDINGS Uterus: Enlarged by single live intrauterine gestation with crown-rump length measuring 5.19 cm, 11 weeks 6 days. heart rate 155 BPM. No significant subchorionic hemorrhage. Adnexa: Ovaries normal in size and morphology. Arterial and venous flow waveforms documented bilaterally. Free Fluid: No abnormal fluid. MEASUREMENTS Uterus (LxHxW cm): 13.2 x 8.3 x 9.7 cm Right Ovary (LxHxW cm): 3.3 x 2.4 x 2.9 cm Left Ovary (LxHxW cm): 2.5 x 2.5 x 2.3 cm IMPRESSION Single live intrauterine gestation with crown-rump length measuring 5.19 cm, 11 weeks 6 days. heart rate 155 BPM. /[place]
[2024-09-09 20:50] LABS: APPEARANCE,URINE CLEAR (CLEAR); GLUCOSE, URINE (UA) NEGATIVE (NEGATIVE); LEUKOCYTE ESTERASE ,URINE NEGATIVE Leu/uL (NEGATIVE); NITRATE,URINE NEGATIVE (NEGATIVE); OCCULT BLOOD,URINE NEGATIVE (NEGATIVE)
[2024-09-09 20:51] LABS: ADD UA MICROSCOPIC YES
[2024-09-09 20:54] LABS: SQUAMOUS EPITHELIAL CELL,UR RARE /HPF (0-2)
[2024-09-09 21:14] VITALS: BP 118/76; PULSE 88; RESP 18; TEMP 98.1; O2SAT 98
== END 2024-09-09 21:45 | disposition home or self-care (01) ==
LOC: EDH 18:50
DX: O99.351 Diseases of the nervous system complicating pregnancy, first trimester (principal); G43.909 Migraine, unspecified, not intractable, without status migrainosus; O20.0 Threatened abortion; Z88.0 Allergy status to penicillin; Z3A.11 11 weeks gestation of pregnancy
CPT/HCPCS: 99284; 96360; 76801; 80048; 84702; 85025; 81001; 36415; J7030